=== PATIENT | female | born 1955 | race Caucasian/White ===

== ENCOUNTER 2016-08-26 11:20 | Emergency (ER) | payer OTHER ==
[2016-08-26 14:49] VITALS: BP 142/77
== END 2016-08-26 14:49 | disposition short-term general hospital (02) ==
LOC: ED 11:20
DX: H33.21 Serous retinal detachment, right eye (principal); E78.00 Pure hypercholesterolemia, unspecified; I10 Essential (primary) hypertension
CPT/HCPCS: 83880